=== PATIENT | female | born 1990 | race Two or more races ===

== ENCOUNTER 2019-12-24 10:04 | Inpatient (IN) | payer MEDICAID, OTHER ==
[~2019-12-24] VITALS: Ht 165.1 cm; Wt 83.9 kg
[2019-12-24] MEDS ORDERED: SODIUM CHLORIDE 0.9% 1,000 ML IV ONE ×3 (10:08→13:15)
[2019-12-24 10:34] LABS: Basophils # (auto) 0 10 ^3/uL (0-0.2); Basophils % (auto) 0.3 % (0.0-2.0); Eosinophils # (auto) 0 10 ^3/uL (0-0.8); Eosinophils % (auto) 0.6 % (0.0-7.0); Hematocrit 39.4 % (36.0-46.0); Hemoglobin 13.1 g/dL (12.2-16.2); Lymphocytes # (auto) 0.8 10 ^3/uL (0.4-5.4); Lymphocytes % (auto) 10.7 % (10.0-50.0); Mean Corpuscular Hemoglobin 28.1 pg (28.0-32.0); Mean Corpuscular Hgb Conc. 33.3 g/dL (32.0-36.0); Mean Corpuscular Volume 84.3 fL (80.0-100.0); Monocytes # (auto) 0.3 10 ^3/uL (0-1.3); Monocytes % (auto) 4.8 % (0.0-12.0); Neutrophils # (auto) 6.1 10 ^3/uL (1.6-8.6); Neutrophils % (auto) 83.6 % (37.0-80.0); Platelet Count (auto) 228 10^3/uL (140-450); Red Blood Cells 4.68 10^6/uL (4.0-5.20); Red Cell Distribution Width 14.1 % (11.8-14.3); White Blood Cell 7.2 10^3/uL (4.4-10.8)
[2019-12-24 10:51] LABS: Albumin 3.5 g/dL (3.4-5.0); Calcium 8.2 mg/dL (8.5-10.1); Potassium 4.6 mmol/L (3.5-5.1)
[2019-12-24 10:54] LABS: BUN/Creatinine Ratio 16.7; Total Protein 7.3 g/dL (6.4-8.2)
[2019-12-24 11:17] LABS: INR 1.06 (0.9-1.15); Partial Thromboplastin Time 25.7 sec (23.64-32.05)
[2019-12-24] MEDS ORDERED: DOPamine 1600MCG/ML D5W 250 ML IV ONE (11:45)
[2019-12-24] MEDS ORDERED: ONDANSETRON HCL 4 MG/2 ML VIAL IV ONE (12:30)
[2019-12-24] MEDS ORDERED: PROMETHAZINE HCL 25 MG/ML 1ML ONE (12:55)
[2019-12-24] MEDS ORDERED: PROMETHAZINE HCL 25 MG/ML 1ML IV ONE (13:00)
[2019-12-24] MEDS ORDERED: NITROGLYCERIN 0.4 MG SL TAB SL PRN (13:45)
[2019-12-24] MEDS ORDERED: HYDROcodone-ACET 5/325MG TAB PO PRN (13:45)
[2019-12-24] MEDS ORDERED: SODIUM CHLORIDE 0.9% 1,000 ML IV SCH (13:45)
[2019-12-24] MEDS ORDERED: ONDANSETRON HCL 4 MG/2 ML VIAL IV PRN (13:45)
[2019-12-24] MEDS ORDERED: MORPHINE SULF INJ 2 MG/ML SYRINGE 1ML IV PRN ×2 (13:45)
[2019-12-24 13:51] LABS: Urine Bacteria NONE SEEN /hpf (None Seen); Urine Blood Negative /uL (Negative); Urine Specific Gravity 1.008 (1.001-1.035); Urine WBC 1 /hpf (0 - 5)
[2019-12-24 14:07] LABS: Alcohol, Urine < 3.0 mg/dL (0-10); Amphetamine Screen, Urine NEGATIVE (NEGATIVE); Barbiturate Scree,Urine NEGATIVE (NEGATIVE); Benzodiazephine Screen, Urine NEGATIVE (NEGATIVE); Cannabinoid Screen, Urine POSITIVE (NEGATIVE); Cocaine Screen, Urine NEGATIVE (NEGATIVE); Opiate Scree,Urine NEGATIVE (NEGATIVE); Phencyclidine Screen, Urine NEGATIVE (NEGATIVE)
--- NOTE | 2019-12-24 14:30 | NUR ---
Telemetry admit from ER PAULINO AL admitted to Telemetry unit after SBAR received from [facility] [employer]. Per report the dobutamine drip was already given in the ER then stopped because the patient became nausiated. Nausea resolved in the ER once IV fluids were increased, nausea meds given and dobutamine was discontinued. Patient oriented to PAULINO KAUR, primary RN, unit, room, bed, and unit policies regarding patient care and visiting hours. Patient now on continuous telemetry monitoring Sinus prasad 41 and asymptomatic, weighed by bedscale and encouraged to call if they need something. All questions and concerns addressed, patient verbalized understanding.
[2019-12-24 14:35] VITALS: BP 109/63
[2019-12-24 16:55] VITALS: BP 109/59
--- NOTE | 2019-12-24 16:59 | NUR ---
refused dobutamine patient continues to refuse dopamine from this rn d/t side effects of nausea and dizziness. Re-educated on the benefits of the medication and that is assists the body to increase the heart rate; patient still refused and is bradycardic at 42 asymptomatic.
--- NOTE | 2019-12-24 19:33 | NUR ---
PATIENT LEFT AMA SIGNED FORM AND PLACED IN CHART
[2019-12-25 13:43] LABS: Hepatitis A Ab IgM Negative; Hepatitis B Core IgM Negative; Hepatitis B Surface Antigen Negative (Negative)
[2019-12-25 13:44] LABS: Hepatitis C Antibody Negative (Negative)
== END 2019-12-24 19:25 | disposition left against medical advice (07) | DRG 561 ==
LOC: ER 10:04 → EDBD 10:04 → TELE 10:05 → TELE-WESTW 14:38
PROVIDERS: ADMIT Nurse Practitioner Acute Care; ATTEND Nurse Practitioner Acute Care
DX: O99.63 Diseases of the digestive system complicating the puerperium (principal); E66.9 Obesity, unspecified; O99.215 Obesity complicating the puerperium; O99.89 Other specified diseases and conditions complicating pregnancy, childbirth and the puerperium; R00.1 Bradycardia, unspecified; Z53.29 Procedure and treatment not carried out because of patient's decision for other reasons; O99.283 Endocrine, nutritional and metabolic diseases complicating pregnancy, third trimester; O99.285 Endocrine, nutritional and metabolic diseases complicating the puerperium; E86.0 Dehydration; M54.9 Dorsalgia, unspecified; R10.13 Epigastric pain; K80.20 Calculus of gallbladder without cholecystitis without obstruction
CPT/HCPCS: 36415; 71045; 76705; 80053; 80074; 80307; 81001; 83690; 85025; 85610; 85730; 93005; 93306; 96361; 96374; 96375; 99291; G0378; J2405